=== PATIENT | female | born 1950 | race Caucasian/White ===

== ENCOUNTER → 2018-02-17 15:30 | Outpatient (CLI) | payer MEDICARE, BC, SELFPAY | PROVIDERS: PCP Nurse Practitioner Family; Visit Provider Surgery | DX: A04.8 Other specified bacterial intestinal infections (principal); D12.6 Benign neoplasm of colon, unspecified | CPT/HCPCS: 99213 ==

== ENCOUNTER → 2018-05-26 12:40 | Outpatient (BNVA) | payer MEDICARE, BC, SELFPAY | PROVIDERS: PCP Nurse Practitioner Family; Referring Provider Nurse Practitioner Family; Visit Provider Surgery | DX: R10.12 Left upper quadrant pain (principal); Z86.19 Personal history of other infectious and parasitic diseases | CPT/HCPCS: 99214 ==

== ENCOUNTER 2018-05-27 15:15 | Outpatient (REF) | payer MEDICARE, BC, SELFPAY ==
[2018-06-01 11:56] LABS: Helicobacter pylori Ag, Feces Positive (NEGAT)
== END 2018-05-27 15:35 ==
LOC: LBN 15:15
PROVIDERS: PCP Nurse Practitioner Family; Visit Provider Surgery
DX: R10.9 Unspecified abdominal pain (principal); Z86.19 Personal history of other infectious and parasitic diseases
CPT/HCPCS: 87338

== ENCOUNTER 2018-06-30 13:35 | Outpatient (REF) | payer MEDICARE, BC, SELFPAY ==
[2018-06-30 18:16] LABS: Absolute Basophil Count 0.01 k/cumm (0.0-0.2); Absolute Eosinophil Count 0.06 k/cumm (0.0-0.7); Absolute Monocyte Count 0.27 k/cumm (0.11-0.7); Absolute Neutrophil Count 2.36 k/cumm (1.2-6.7); Basophils % 0.3; Eosinophils % 1.5; HGB 12.1 g/dL (12.0-15.5); Lymphocytes % 30.8; Mean Corp. HGB Concentration 32.7 g/dL (32.0-36.0); Mean Corpuscular Hemoglobin 27.1 pg (27.0-33.0); Mean Corpuscular Volume 82.8 fL (80-95); Mean Platelet Volume 11.1 fL (8.0-11.0); Monocytes % 6.9; Neutrophils % 60.5; Platelet Count 243 x1000/uL (130-400); RBC 4.47 m/cumm (4.00-5.20); RBC Distribution Width 14.9 % (11.7-14.6)
[2018-06-30 18:33] LABS: ALT 32 U/L (12-78); AST 26 U/L (15-37); Albumin 3.7 g/dL (3.4-5.0); Alkaline Phosphatase 62 U/L (46-116); Amylase 54 U/L (25-115); Anion Gap 7.3 mmol/L (3-11); BUN 11 mg/dL (7-18); Bilirubin, Total 0.2 mg/dL (0.2-1.0); CO2 28.7 mmol/L (21.0-32.0); CREATININE 0.72 mg/dL (0.55-1.02); Calcium 9.1 mg/dL (8.5-10.1); Chloride 106 mmol/L (98-107); Glucose 103 mg/dL (70-100); Lipase 179 U/L (73-393); Potassium 3.7 mmol/L (3.5-5.1); Sodium 142 mmol/L (136-145); Total Protein 6.2 g/dL (6.4-8.2)
== END 2018-06-30 13:55 ==
LOC: NCHCN 13:35
PROVIDERS: PCP Nurse Practitioner Family; Visit Provider Family Medicine
DX: R10.12 Left upper quadrant pain (principal)
CPT/HCPCS: 80053; 83690; 82150; 85025

== ENCOUNTER 2018-07-11 09:43 | Outpatient (REF) | payer MEDICARE, BC, SELFPAY ==
[2018-07-13 12:49] LABS: Helicobacter pylori Ag, Feces Negative (NEGAT)
== END 2018-07-11 10:03 ==
LOC: LBN 09:43
PROVIDERS: PCP Nurse Practitioner Family; Visit Provider Surgery
DX: A04.8 Other specified bacterial intestinal infections (principal)
CPT/HCPCS: 87338

== ENCOUNTER 2019-01-09 00:53 | Outpatient (CLI) | payer MEDICARE, BC, SELFPAY ==
--- NOTE | 2019-01-09 08:00 | DI.MAMMO_ITS ---
SYMPTOM/DIAGNOSIS: SCREENING, Z12.31, PREVENTATIVE CARE, Z00.00 MAMMOGRAMS: Mammograms were interpreted according to the usual protocol including computer analysis with CAD system, tomosynthesis and C view imaging. Comparison with prior examinations. Breast density C. No suspicious masses or microcalcifications are seen. There is no definite evidence of malignancy. IMPRESSION: Negative mammogram. Routine screening is recommended. Category I. MQSA ASSESSMENT OF FINDINGS: Negative. Category 1. Patient will receive a letter notifying them of these results. Bi-RADS category C. The breasts are heterogeneously dense, which may obscure small masses.
== END 2019-01-09 01:13 ==
PROVIDERS: PCP Nurse Practitioner Family; Visit Provider Nurse Practitioner Family
DX: Z12.31 Encounter for screening mammogram for malignant neoplasm of breast (principal)
CPT/HCPCS: 77063; 77067

== ENCOUNTER 2019-12-18 13:34 | Emergency (ER) | payer MEDICARE, BC, SELFPAY ==
[2019-12-18 13:40] VITALS: PULSE 65; RESP 16; TEMP 36.6; O2SAT 98
--- NOTE | 2019-12-18 13:56 | ED.GENADUL_ITS ---
Discharge Plan Disposition Patient Disposition: HOME Condition: Stable Discharge Details Chief Complaint: HeadInjury Clinical Impression: Closed head injury without loss of consciousness, Scalp hematoma, Facial hematoma Primary Care Provider: Ana Posey ED Provider: Haleigh Correa Home Meds and New Rx's Prescriptions: Continued multivitamin [Daily Vitamin Formula] 1 EACH tablet 1 ea PO DAILY RF: 0 calcium carbonate 600 MG tablet 600 mg PO BID RF: 0 PreserVision AREDS-2 [id number] Capsule 1 tab PO BID RF: 0 Discharge Instructions Instructions: Head Injury (ED), Hematoma (ED) Additional Instructions: Drink plenty of fluids and get plenty of rest. Take Tylenol as needed directed for pain. Follow-up with your primary care doctor in 1 week as needed. Return to the emergency department with any worsening or new concerning symptoms such as persistent headaches, vomiting, dizziness or any other concerns. You can discuss with your primary care doctor the likely incidental findings on the CT scan of your cervical spine today which noted disc herniations which may be chronic. If you begin to develop any worsening neck pain, arm pain, numbness or tingling, you can consider possible MRI of your cervical spine as an outpatient. Discharge Data Discharge Date/Time-TO BE ENTERED AT DEPARTURE: 12/18/19 15:29 Discharge Physician: Haleigh Correa Medical Decision Making 69-year-old female presents for evaluation after head injury after heavy metal sculpture fell on her head at home prior to arrival. She has 2 small hematomas on her scalp on the right side of her face. No focal deficits. No open wounds noted. No midline spinal tenderness. Considering pt's age and heavy weight of object, patient referred for stat CT head and cervical spine which both were negative for acute findings. There were what appeared to be chronic cervical spine disc herniations which pt was informed about. She declined any pain medication here. She felt good to go home. She was advised to follow-up with her primary care doctor for reevaluation and to return here at any time if worse. Medical Records Medical records reviewed: Yes I reviewed the patient's medical records. Imaging Data Radiologic Study: Radiologist's impression: CT HEAD CERVICAL SPINE WO CLINICAL HISTORY: hit R head w/ heavy sculpture, hematoma x2 TECHNIQUE: COMPARISON: No exams were available for comparison FINDINGS: CT examination cervical spine was performed contrast administration. Visualized lung apices are clear. Tracheolaryngeal structures appear intact. Note is made of degenerative changes of the cervical spine, there is are probable small central disc herniation at the C3-4 level and also at the C6-7 level on the left.. Some prominence of disc osteophyte complex also noted C4-5. There is no evidence of an acute fracture or dislocation. Cranial CT was performed without contrast administration. The ventricular system is appearance. There is no evidence of acute intracranial hemorrhage, mass effect, midline shift. The orbital and temporal bone structures appear intact. No calvarial fracture identified. The paranasal sinuses and mastoid air cells appear clear as visualized. IMPRESSION: No evidence of acute cervical spine injury. Multiple cervical disc herniations noted, presumably chronic. No evidence of acute intracranial injury. HPI General Mode of arrival: ambulatory . Date/Time Provider Initiated Documentation: 12/18/19 13:38 . Limitations to Documentation: no limitations . Information obtained by: patient . HPI Narrative: Patient is a 69-year-old fe male who presents for evaluation after head injury at home prior to arrival. Patient states she was attempting to plug in a fan when an approximately 30lb metal sculpture on a table fell off and hit her on the top of the head. She states shortly after she noticed an egg on the top of her head. She states a little while later she looked in the mirror and noticed another hematoma on the right side of her face as well. She states she became worried but then realized she may have been hit with the sculpture on another part of her head. She denies any LOC, vomiting, headache, blurry vision, dizziness. She states she placed ice initially to both hematomas and now has some improvement. She has not taken any medication for pain. Related Data Home Medications Medication Instructions Recorded Confirmed calcium carbonate 600 mg PO BID 11/10/17 12/18/19 multivitamin [Daily Vitamin 1 ea PO DAILY 11/10/17 05/26/18 Formula] PreserVision AREDS-2 1 tab PO BID 12/18/19 12/18/19 Allergies Allergy/AdvReac Type Severity Reaction Status Date / Time No Known Allergies Allergy Unverified 12/18/19 13:45 General Stated Complaint: HeadInjury [place]: 3 Review of Systems All systems reviewed & are unremarkable except as noted in HPI and below Constitutional Constitutional: Reports as per HPI, Denies chills, Denies fever(s) and Reports headache(s) Eyes Eyes: Denies blurry vision ENT Ears, Nose, Mouth, and Throat: Denies dizziness, Reports headache(s), Denies sore throat and Denies throat swelling Cardiovascular Cardiovascular: Denies chest pain and Denies dyspnea Respiratory Respiratory: Denies cough and Denies dyspnea Gastrointestinal Gastrointestinal: Denies abdominal pain, Denies diarrhea and Denies vomiting Genitourinary Genitourinary: Denies hematuria and Denies dysuria Musculoskeletal Musculoskeletal: Denies back pain and Denies numbness Integumentary/Breasts Skin/Breast: Denies lesions and Denies rash Neurologic Neurologic: Denies dizziness, Reports headache(s), Denies localized weakness and Denies numbness Allergic/Immunologic Allergic/Immunologic: Denies throat swelling [facility] Medical History (Updated 12/18/19 @ 15:17 by Haleigh Correa DO) Dysphonia Fibrocystic breast disease Hx of Helicobacter infection (Acute) Leg cramps Low back pain Osteoporosis Rib pain on left side Stress at home Surgical History Colonoscopy - IV Sedation 2007 Colonoscopy - MAC (01/02/18) EGD - MAC (01/02/18) Social History (Updated 05/26/18 @ 13:08 by Lorin Jones MD) Smoking/Tobacco Use Status: Never Alcohol Intake: current Alcohol Intake frequency: a few times a week Drug use: Never Substance use type: does not use Household members: spouse Housing: house Exam Const General: cooperative, healthy appearing and no acute distress HENCA Head: normal to inspection Head images: 2 1. 2x2cm faintly ecchymotic minimally raised hematoma on R posterior side of head. No open wounds. 2. 3x3cm faintly ecchymotic minimally raised hematoma on R lateral temporal region of head. No open wounds. Ears: hearing grossly normal bilaterally, external ears normal and TM's normal bilaterally General nose exam: external nose normal Face and sinus: normal facial exam Mouth: oral mucosae normal Throat: posterior oropharynx normal Eyes General: appearance normal, both eyes and all related structures Neck Neck: normal visual inspection Resp Effort & Inspection: normal respiratory effort and able to speak in complete s entences Cardio Rate: regular rate Back/Spine/Pelvis Cervical Spine: No cervical spinal tenderness Skin General skin exam: no rashes or lesions noted Neuro General: patient alert, patient awake, patient oriented x3, gait normal, moves all extremities and no focal motor deficits Cranial Nerves: CN's II-XI intact bilaterally Motor: muscle tone normal throughout and strength 5/5 throughout Extrem General: normal to inspection and full ROM Psych Appearance: grossly normal Affect: normal affect Course Vital Signs Vital signs: Vital Signs Temperature 97.9 F 12/18/19 13:40 Pulse 65 12/18/19 13:40 Respiratory Rate 16 12/18/19 13:40 Pulse Oximetry 98 12/18/19 13:40 Temperature 97.9 F 12/18/19 13:40 Temperature Source Skin 12/18/19 13:40 Pulse 65 12/18/19 13:40 Respiratory Rate 16 12/18/19 13:40 Respiratory Effort Non-Labored 12/18/19 13:47 Respiratory Depth Normal 12/18/19 13:47 Respiratory Pattern Normal 12/18/19 13:47 Blood Pressure Position Sitting 12/18/19 13:40 Pulse Oximetry 98 12/18/19 13:40 Oxygen Delivery Method Room Air 12/18/19 13:40 Oxygen Flow Rate 0 12/18/19 13:40 Pain Level 2 12/18/19 13:40
--- NOTE | 2019-12-18 14:00 | DI.CT_ITS ---
EXAM: CT HEAD CERVICAL SPINE WO CLINICAL HISTORY: hit R head w/ heavy sculpture, hematoma x2 TECHNIQUE: COMPARISON: No exams were available for comparison FINDINGS: CT examination cervical spine was performed contrast administration. Visualized lung apices are bridget r. Tracheolaryngeal structures appear intact. Note is made of degenerative changes of the cervical spine, there is are probable small central disc herniation at the C3-4 level and also at the C6-7 lev el on the left.. Some prominence of disc osteophyte complex also noted C4-5. There is no evidence of an acute fracture or dislocation. Cranial CT was performed without contrast administration. The ventricular system is appearance. The re is no evidence of acute intracranial hemorrhage, mass effect, midline shift. The orbital and temp oral bone structures appear intact. No calvarial fracture identified. The paranasal sinuses and mastoid air cells appear clear as visual ized. IMPRESSION: No evidence of acute cervical spine injury. Multiple cervical disc herniations noted, presumably chr onic. No evidence of acute intracranial injury.
[2019-12-18 15:25] VITALS: BP 124/79; PULSE 63; RESP 18; TEMP 36.6; O2SAT 100
[2019-12-18 15:29] VITALS: BP 124/79; PULSE 63; RESP 18; TEMP 36.6; O2SAT 100
== END 2019-12-18 15:29 | disposition home or self-care (01) ==
PROVIDERS: Emergency Provider Physician Assistant; PCP Nurse Practitioner Family
DX: S09.90XA Unspecified injury of head, initial encounter (principal); S00.03XA Contusion of scalp, initial encounter; S00.83XA Contusion of other part of head, initial encounter; W20.8XXA Other cause of strike by thrown, projected or falling object, initial encounter
CPT/HCPCS: 99284; 70450; 72125; 99285

== ENCOUNTER 2020-02-13 09:17 | Outpatient (REF) | payer MEDICARE, BC, SELFPAY ==
[2020-02-14 13:13] LABS: Helicobacter pylori Ag, Feces Positive (Negative)
== END 2020-02-13 09:37 ==
LOC: NCHCN 09:17
PROVIDERS: PCP Nurse Practitioner Family; Visit Provider Nurse Practitioner Family
DX: K29.60 Other gastritis without bleeding (principal)
CPT/HCPCS: 87338

== ENCOUNTER → 2020-02-22 13:23 | Outpatient (BNVA) | payer MEDICARE, BC, SELFPAY | PROVIDERS: PCP Nurse Practitioner Family; Referring Provider Nurse Practitioner Family; Visit Provider Internal Medicine Cardiovascular Disease | DX: R07.89 Other chest pain (principal); I49.1 Atrial premature depolarization | CPT/HCPCS: 99203; 99214 ==

== ENCOUNTER 2020-02-27 04:38 | Outpatient (CLI) | payer MEDICARE, BC, SELFPAY ==
--- NOTE | 2020-02-27 13:14 | DI.MAMMO_ITS ---
EXAM: MG MAMMO SCREENING CLINICAL HISTORY: SCREENING, Z12.39 TECHNIQUE: Bilateral full field digital CC and MLO mammographic images were obtained with 3D tomosyn thesis and utilizing computer aided detection (CAD). COMPARISON: Available for comparison. FINDINGS: Masses/Architectural Distortion: Scattered nodular densities are seen in the breasts. There is a bio psy clip in the upper-outer quadrant of the left breast. Microcalcifications: No suspicious pleomorphic-type are seen. Skin Thickening/Nipple Retraction: None. IMPRESSION: 1. No significant interval change with no specific features of malignancy noted. 2. Unless there is more urgent need, screening mammography is recommended, as per [place] [employer] guidelines. BI-RADS Category 2 - Benign Findings Breast Density - Category C - Heterogeneously dense The mammogram demonstrates the patient's breast tissue is dense. Dense breast tissue is very common a nd is not abnormal but dense breast tissue can make it harder to find cancer on a mammogram. Also, de nse breast tissue may increase their breast cancer risk. [facility] was provided to the patient to raise their awareness. Use this report when you speak wi th the patient about their risks for breast cancer, which includes their family history. At that time , you may recommend for more screening tests (Ultrasound or MRI) as they might be useful based on the ir risk. A negative radiographic report should not delay biopsy if a dominant or clinically suspicious mass is present. Up to ten percent of cancers are not identified on mammography. A negative report may reinforce clinical impression. Adenosis and dense breasts may obscure an underlying neoplasm. False positive reports average 6 to 10%. Patient will receive a letter notifying them of these results.
== END 2020-02-27 04:58 ==
PROVIDERS: PCP Nurse Practitioner Family; Visit Provider Nurse Practitioner Family
DX: Z12.31 Encounter for screening mammogram for malignant neoplasm of breast (principal); R92.2 Inconclusive mammogram
CPT/HCPCS: 77063; 77067

== ENCOUNTER 2020-03-04 00:51 | Outpatient (CLI) | payer MEDICARE, BC, SELFPAY ==
--- NOTE | 2020-03-04 08:00 | ETT_ITS ---
APPROVED REPORT Exam: Exercise Treadmill Patient Location: Out-Patient Room/Bed: Stress Nurse: Casi White RN BMI: 26.82 Baseline Rhythm: Sinus Bradycardia Indications: Chest pain. Medical History Medical History: Hpylori. Cardiac Medications: Aspirin Allergies: No known drug allergies Cardiac Risk Factors: FHX of CAD Exercise History: Physically active Lung Sounds: Clear to auscultation Heart Sounds: Regular, Bradycardia Stress Test Details Test: Exercise stress testing was performed using a Jax protocol. Rest Stress HR Resting HR Supine: 57 bpm Max Heart Rate (APMHR): 153 bpm Resting HR Standin bpm Target HR (85% APMHR): 130 bpm Max HR Achieved: 158 bpm % of APMHR: 103 Recovery HR: 68 bpm HR response to stress: Normal HR response to stress BP Resting BP Supine: 128/76 mmHg Resting BP Standin/80 mmHg Max BP: 160/66 mmHg Recovery BP: 124/72 mmHg BP response to stress: Normal blood pressure response to stress. ECG Resting ECG: Sinus Bradycardia Stress ECG: Sinus Tachycardia ST Change: No significant ST segment changes Arrhythmia: None Recovery ECG: Sinus Rhythm Recovery ST Change: No significant ST segment changes Recovery Arrhythmia: APC Clinical Reason for Termination: Fatigue Stress Symptoms: Chest pain Exercise duration: 07 min05 sec Highest Stage Reached: Stage 3: 3.4 mph at 14% grade. Exercise capacity: 8.74 METs Functional Capacity: Above average capacity Stress ECG Conclusion 1. The patient exercised for 7 minutes (9 METS). The patient reported chest pain that was not exerci se limiting. 2. There is no evidence of ischemia on the EKG portion of the exam. 3. Per report, the patient had an episode of supraventricular tachycardia 7 minutes into recovery but the strips were unfortunately not recorded for review. 4. The Copeland Score ( 3) estimates an annual cardiovascular mortality of 1% and a five year survival of 94%. Using the Copeland Score there is an intermediate probability of angiographic coronary disease. Stress Test Summary STAGE Time (mins) Speed (mph) Grade (%) HR BP SYMPTOMS METS Supine 57 128/76 Standing 71 122/80 1 3 1.7 10 94 126/74 4.6 2 6 2.5 12 112 148/68 7 3 9 3.4 14 152 Mild 2 out of 10 chest tightness 10.2 1 min recovery 82 160/66 Chest tightness subsided 3 min recovery 74 150/68 6 min recovery 68 124/72
== END 2020-03-04 01:11 ==
PROVIDERS: PCP Nurse Practitioner Family; Visit Provider Internal Medicine Cardiovascular Disease
DX: R07.9 Chest pain, unspecified (principal); Z82.49 Family history of ischemic heart disease and other diseases of the circulatory system
CPT/HCPCS: 93016; 93018; 93017

== ENCOUNTER → 2020-03-18 09:38 | Outpatient (BNVA) | payer MEDICARE, BC, SELFPAY | PROVIDERS: PCP Nurse Practitioner Family; Referring Provider Nurse Practitioner Family; Visit Provider Internal Medicine Cardiovascular Disease | DX: R07.9 Chest pain, unspecified (principal); R07.89 Other chest pain; Z71.2 Person consulting for explanation of examination or test findings | CPT/HCPCS: 99212; 99441 ==

== ENCOUNTER 2020-11-04 13:28 | Outpatient (REF) | payer MEDICARE, BC, SELFPAY ==
[2020-11-04 18:58] LABS: HCT 38.8 % (36.0-46.0); HGB 12.5 g/dL (11.2-15.7); MCH 26.9 pg (27.0-33.0); MCHC 32.2 % (32.0-36.0); MCV 83.6 fL (80-95); MPV 11.2 fL (8.0-11.0); Platelet Count 229 10^3/uL (130-400); RBC 4.64 10^6/uL (3.93-5.22); RDW 13.5 % (11.7-14.6); RDW-SD 41.4 fL
[2020-11-04 19:12] LABS: ALT 30 U/L (14-59); AST 23 U/L (15-37); Albumin 3.9 g/dL (3.4-5.0); Alkaline Phosphatase 83 U/L (46-116); Anion Gap 7.5 mmol/L (3-11); BUN 7 mg/dL (7-18); Bilirubin, Total 0.3 mg/dL (0.2-1.0); CO2 28.5 mmol/L (21.0-32.0); CREATININE 0.7 mg/dL (0.55-1.02); Calcium 8.9 mg/dL (8.5-10.1); Calculated LDL 119 mg/dL (<100); Chloride 105 mmol/L (98-107); Cholesterol 214 mg/dL (<200); Glucose 102 mg/dL (74-106); HDL Cholesterol 86 mg/dL (40-60); Potassium 4.3 mmol/L (3.5-5.1); Sodium 141 mmol/L (136-145); TSH (W/Ref FT4) 1.58 uIU/mL (0.36-3.74); Total Protein 6.3 g/dL (6.4-8.2); Triglyceride 48 mg/dL (<150)
[2020-11-04 19:17] LABS: ESR 4 mm//hr (0-30)
== END 2020-11-04 13:29 | disposition home or self-care (01) ==
LOC: NCHCN 13:28
PROVIDERS: PCP Nurse Practitioner Family; Visit Provider Nurse Practitioner Family
DX: L65.9 Nonscarring hair loss, unspecified (principal); K29.60 Other gastritis without bleeding; R79.89 Other specified abnormal findings of blood chemistry
CPT/HCPCS: 80053; 80061; 85027; 85652; 84443

== ENCOUNTER 2020-11-05 14:01 | Outpatient (REF) | payer MEDICARE, BC, SELFPAY ==
[2020-11-06 15:29] LABS: Helicobacter pylori Ag, Feces Negative (Negative)
== END 2020-11-05 14:02 | disposition home or self-care (01) ==
LOC: LBN 14:01
PROVIDERS: PCP Nurse Practitioner Family; Visit Provider Nurse Practitioner Family
DX: K29.60 Other gastritis without bleeding (principal)
CPT/HCPCS: 87338

== ENCOUNTER 2021-02-27 03:47 | Outpatient (CLI) | payer MEDICARE, BC, SELFPAY ==
--- NOTE | 2021-02-27 | DI.MAMMO_ITS ---
Exam(s) MAMMO SCREENING EXAM: MAMMO SCREENING CLINICAL HISTORY: SCREENING, Z12.39 TECHNIQUE: Mammograms were interpreted according to the usual protocol including computer analysis w [place] CAD system, tomosynthesis and C-view imaging. COMPARISON: FINDINGS: The breasts are heterogeneously dense. No dominant mass or clumped microcalcification is identified in either breast. Prior biopsy noted with clip in the upper outer quadrant of the left breast. Curr ent examination is compared with previous examinations including February 2020 and there has been no gross interval change in appearance in comparison with the previous studies. IMPRESSION: No specific evidence of malignancy at this time. Routine screening examinations are suggested at yea rly intervals in this age group according to the ACS ACR guidelines. BI-RADS Category 1 - Negative Breast Density - Category C - Heterogeneously dense
== END 2021-02-27 04:07 ==
PROVIDERS: PCP Nurse Practitioner Family; Visit Provider Nurse Practitioner Family
DX: Z12.31 Encounter for screening mammogram for malignant neoplasm of breast (principal)
CPT/HCPCS: 77063; 77067

== ENCOUNTER → 2021-03-12 09:49 | Outpatient (BNVA) | payer MEDICARE, BC, SELFPAY | PROVIDERS: PCP Nurse Practitioner Family; Referring Provider Nurse Practitioner Family; Visit Provider Internal Medicine Cardiovascular Disease | DX: R07.89 Other chest pain (principal) | CPT/HCPCS: 99212 ==

== ENCOUNTER 2021-11-17 15:08 | Outpatient (REF) | payer MEDICARE, SELFPAY ==
[2021-11-17 18:50] LABS: HCT 38.2 % (36.0-46.0); HGB 12.5 g/dL (11.2-15.7); MCHC 32.7 % (32.0-36.0); MCV 86 fL (80-95); MPV 10.9 fL (8.0-11.0); Platelet Count 249 10^3/uL (130-400); RBC 4.47 10^6/uL (3.93-5.22); RDW 13.7 % (11.7-14.6); RDW-SD 42.6 fL; WBC 4.54 10^3/uL (4.4-10.8)
[2021-11-17 18:55] LABS: Anion Gap 8.9 mmol/L (3-11); BUN 10 mg/dL (7-18); CO2 26.1 mmol/L (21.0-32.0); CREATININE 0.6 mg/dL (0.55-1.02); Calcium 9.3 mg/dL (8.5-10.1); Chloride 105 mmol/L (98-107); Glucose 80 mg/dL (74-106); Potassium 4.2 mmol/L (3.5-5.1); Sodium 140 mmol/L (136-145)
== END 2021-11-17 15:09 | disposition home or self-care (01) ==
LOC: NCHCN 15:08
PROVIDERS: PCP Nurse Practitioner Family; Visit Provider Nurse Practitioner Family
DX: R07.89 Other chest pain (principal); Z13.6 Encounter for screening for cardiovascular disorders; Z00.00 Encounter for general adult medical examination without abnormal findings
CPT/HCPCS: 80048; 85027

== ENCOUNTER → 2022-03-02 01:15 | Outpatient (CLI) | payer MEDICARE, SELFPAY ==
--- NOTE | 2022-03-02 12:53 | DI.MAMMO_ITS ---
Exam(s) MAMMO SCREENING EXAM: MAMMO SCREENING CLINICAL HISTORY: SCREENING, Z12.39 TECHNIQUE: Bilateral full field digital CC and MLO mammographic images were obtained with 3D tomosyn thesis and utilizing computer aided detection (CAD). COMPARISON: Available for comparison. FINDINGS: Masses/Architectural Distortion: None seen. There is again seen a biopsy clip in the upper-outer quad rant of the left breast. Microcalcifications: No suspicious pleomorphic-type are seen. Skin Thickening/Nipple Retraction: None. IMPRESSION: 1. No significant interval change with no specific features of malignancy noted. 2. Unless there is more urgent need, screening mammography is recommended, as per [place] [employer] guidelines. BI-RADS Category 1 - Negative Breast Density - Category C - Heterogeneously dense Breast density category C or D implies that the patient has dense breast tissue. Dense breast tissue is very common and is not abnormal but dense breast tissue can make it harder to find cancer on a ma mmogram. Also, dense breast tissue may increase their breast cancer risk. This information about the result of the mammogram report was provided to the patient to raise their awareness. Use this report when you speak with the patient about their risks for breast cancer, which includes their family hist ory. At that time, you may recommend for more screening tests (Ultrasound or MRI) as they might be us eful based on their risk. A negative radiographic report should not delay biopsy if a dominant or clinically suspicious mass is present. Up to ten percent of cancers are not identified on mammography. A negative report may reinforce clinical impression. Adenosis and dense breasts may obscure an underlying neoplasm. False positive reports average 6 to 10%. Patient will receive a letter notifying them of these results.
== END ==
PROVIDERS: PCP Nurse Practitioner Family; Visit Provider Nurse Practitioner Family
DX: Z12.31 Encounter for screening mammogram for malignant neoplasm of breast (principal)
CPT/HCPCS: 77063; 77067